=== PATIENT | male | born 1950 ===

== ENCOUNTER 2017-06-18 20:26 | Emergency (ER) | payer MEDICARE, MEDICAID ==
[2017-06-18 20:35] VITALS: TEMP 97.4; O2SAT 98
[2017-06-18 23:29] VITALS: BP 178/90; PULSE 82; RESP 18
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
--- NOTE | 2017-06-19 15:44 | RAD ---
PROCEDURE: Right hip dated 06/18/2017. HISTORY: Right hip pain. s/p ORIF years ago. COMPARISON: Comparison made with prior study 12/10/2011. TECHNIQUE: AP view of the pelvis and frogleg lateral view right hip performed FINDINGS: The current study re- demonstrates 3 compression screw traversing the right femoral head and neck. 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 The compression screws have been displaced distally. . There is degenerative osteoarthritis right hip joint with the acetabulum and subchondral sclerosis. Note also made of degenerative osteoarthritis left hip. 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 Osteoarthritis both hip joints. Note that this report was placed in PA review folder for followup
== END 2017-06-19 00:22 | disposition home or self-care (01) ==
LOC: C.ER 20:26
DX: G89.29 Other chronic pain (principal); M25.551 Pain in right hip
CPT/HCPCS: 73502; 96372; 99284; J1885